=== PATIENT | male | born 1945 ===

== ENCOUNTER 2018-04-12 07:59 | Inpatient (IN) | payer MEDICARE ==
[~2018-04-12] VITALS: Ht 167.6 cm; Wt 105.0 kg
[~2018-04-12 07:59] MED LIST: AMLO10 PO; ASPI81EC; ASPI81EC PO; ATOR20 PO; ATOR40TA PO; BENA20 PO; BENAML10/5; Bactrim Ds Tab1 EACH PO; CEPH500 PO; CRUTCH USE; CYAN1000 PO; EZET10-10; Ferrous Glucon325 M2 PO; HYDACE5 PO; LEVFLO500 PO; NAPR500 PO; OXYACE5T PO; PRIM50 PO; TRIA50 PO; TRIHYD; TRIHYD253A PO
[2018-04-12] MEDS ORDERED: ATOR10 PO (08:41)
[2018-04-12] MEDS ORDERED: ADULT ASPIRIN81 MG (08:41)
[2018-04-12] MEDS ORDERED: AMLO5 PO (08:42)
[2018-04-12] MEDS ORDERED: MAGOXI400 (08:42)
[2018-04-12 09:17] LABS: BASOPHILS ABSOLUTE AUTO 0.08 K/mm3 (0.00-0.23); BASOPHILS PERCENT AUTO 0 % (0-2); EOSINOPHILS ABSOLUTE AUTO 0.02 K/mm3 (0.00-0.68); EOSINOPHILS PERCENT AUTO 0 % (0-6); Hematocrit 49.8 % (37.0-53.0); IMMATURE GRAN ABSOLUTE AUTO 0.39 K/mm3 (0.00-0.10); IMMATURE GRAN PERCENT AUTO 2 % (0-1); LYMPHOCYTES ABSOLUTE AUTO 0.55 K/mm3 (0.84-5.20); LYMPHOCYTES PERCENT AUTO 3 % (21-46); MONOCYTES ABSOLUTE AUTO 1.23 K/mm3 (0.16-1.47); MONOCYTES PERCENT AUTO 6 % (4-13); Mean Corpuscular HGB 31.3 pg (26.0-34.0); Mean Corpuscular HGB Conc 32.1 g/dL (31.5-36.5); Mean Corpuscular Volume 98 fL (80-100); Mean Platelet Volume 10.6 fL (9.1-12.4); NEUTROPHILS ABSOLUTE AUTO 19.94 K/mm3 (1.96-9.15); NEUTROPHILS PERCENT AUTO 90 % (41-73); Platelet Count 246 K/mm3 (150-400); RDW Coefficient Variation 13.2 % (11.7-14.2); RDW Standard Deviation 47.9 fL (35.1-46.3); Red Blood Cell Count 5.11 M/mm3 (4.30-5.90); White Blood Cell Count 22.21 K/mm3 (4.00-11.30)
[2018-04-12 09:37] LABS: Albumin, Blood 2.9 g/dL (3.4-5.0); Albumin/Globulin Ratio 0.6 (0.8-1.8); Bilirubin, Total 0.9 mg/dL (0.1-1.0); Bun/Creatinine Ratio 22.2 (12.0-20.0); Calcium, Blood 9.4 mg/dL (8.5-10.1); Creatinine, Blood 2.48 mg/dL (0.60-1.20); Globulin, Blood 4.9 g/dL (2.2-4.0); Potassium, Blood 4.3 mmol/L (3.5-5.5); Total Protein, Blood 7.8 g/dL (6.4-8.2)
[2018-04-12] MEDS ORDERED: ALLO100 PO (14:36)
[2018-04-12] MEDS ORDERED: K-Tab10 MEQ PO (14:38)
[2018-04-12] MEDS ORDERED: CHOL10002 PO (14:38)
[2018-04-13 03:32] LABS: Hemoglobin 14.1 g/dL (13.5-17.5); Mean Corpuscular HGB 30.7 pg (26.0-34.0); Mean Corpuscular HGB Conc 31.3 g/dL (31.5-36.5); Mean Corpuscular Volume 98 fL (80-100); Mean Platelet Volume 11.1 fL (9.1-12.4); Platelet Count 194 K/mm3 (150-400); RDW Coefficient Variation 13.5 % (11.7-14.2); RDW Standard Deviation 49.1 fL (35.1-46.3); Red Blood Cell Count 4.59 M/mm3 (4.30-5.90); White Blood Cell Count 18.84 K/mm3 (4.00-11.30)
[2018-04-13 03:51] LABS: Albumin, Blood 2.2 g/dL (3.4-5.0); Albumin/Globulin Ratio 0.5 (0.8-1.8); Bilirubin, Total 0.7 mg/dL (0.1-1.0); Bun/Creatinine Ratio 24.2 (12.0-20.0); Calcium, Blood 8.4 mg/dL (8.5-10.1); Creatinine, Blood 2.48 mg/dL (0.60-1.20); Globulin, Blood 4.3 g/dL (2.2-4.0); Potassium, Blood 4.5 mmol/L (3.5-5.5); Total Protein, Blood 6.5 g/dL (6.4-8.2)
[2018-04-13 04:05] LABS: BAND PERCENT MAN 17 % (0-8); BASOPHILS PERCENT MAN 0 % (0-2); EOSINOPHILS PERCENT MAN 0 % (0-6); LYMPHOCYTES ABSOLUTE MAN 0.37 K/mm3 (0.84-5.20); LYMPHOCYTES PERCENT MAN 2 % (21-46); MONOCYTES ABSOLUTE MAN 1.13 K/mm3 (0.16-1.47); MONOCYTES PERCENT MAN 6 % (4-13); NEUTROPHILS ABSOLUTE MAN 17.33 K/mm3 (1.96-9.15); SEG NEUTROPHILS PERCENT MAN 75 % (41-73); TOTAL CELLS COUNTED 100
[2018-04-14 09:12] LABS: BASOPHILS ABSOLUTE AUTO 0.04 K/mm3 (0.00-0.23); BASOPHILS PERCENT AUTO 0 % (0-2); EOSINOPHILS ABSOLUTE AUTO 0.02 K/mm3 (0.00-0.68); EOSINOPHILS PERCENT AUTO 0 % (0-6); Hemoglobin 13.7 g/dL (13.5-17.5); IMMATURE GRAN ABSOLUTE AUTO 0.45 K/mm3 (0.00-0.10); IMMATURE GRAN PERCENT AUTO 3 % (0-1); LYMPHOCYTES ABSOLUTE AUTO 0.47 K/mm3 (0.84-5.20); LYMPHOCYTES PERCENT AUTO 3 % (21-46); MONOCYTES ABSOLUTE AUTO 0.81 K/mm3 (0.16-1.47); MONOCYTES PERCENT AUTO 5 % (4-13); Mean Corpuscular HGB 31.1 pg (26.0-34.0); Mean Corpuscular HGB Conc 31.1 g/dL (31.5-36.5); Mean Corpuscular Volume 100 fL (80-100); Mean Platelet Volume 10.8 fL (9.1-12.4); NEUTROPHILS ABSOLUTE AUTO 13.99 K/mm3 (1.96-9.15); NEUTROPHILS PERCENT AUTO 89 % (41-73); Platelet Count 175 K/mm3 (150-400); RDW Coefficient Variation 13.8 % (11.7-14.2); RDW Standard Deviation 51.6 fL (35.1-46.3); White Blood Cell Count 15.78 K/mm3 (4.00-11.30)
[2018-04-14 09:41] LABS: Bun/Creatinine Ratio 28.5 (12.0-20.0); Calcium, Blood 8.6 mg/dL (8.5-10.1); Creatinine, Blood 2.46 mg/dL (0.60-1.20); Potassium, Blood 4.2 mmol/L (3.5-5.5)
[2018-04-15 06:47] LABS: Albumin, Blood 2.1 g/dL (3.4-5.0); Anion Gap 7 mmol/L (6-16); Blood Urea Nitrogen 69 mg/dL (8-24); Bun/Creatinine Ratio 30.8 (12.0-20.0); CO2, Blood 26 mmol/L (21-32); Calcium, Blood 8.7 mg/dL (8.5-10.1); Chloride, Blood 105 mmol/L (98-108); Creatinine, Blood 2.24 mg/dL (0.60-1.20); Glomerular Filtration Rate 31 (60-); Glucose, Blood 92 mg/dL (70-99); Phosphorus, Blood 3.4 mg/dL (2.5-4.9); Potassium, Blood 3.8 mmol/L (3.5-5.5); Sodium, Blood 138 mmol/L (136-145)
[2018-04-15] MEDS ORDERED: OXYC5 PO (10:46)
[2018-04-15] MEDS ORDERED: AMOCLA500 PO (10:47)
== END 2018-04-15 11:50 | disposition home or self-care (01) | DRG 394 ==
LOC: ER 07:59 → ICUE 12:04 → SURS 12:04 → ICUE 18:07 → PCU 04-13 03:45 → SURS 04-13 10:32
PROVIDERS: Family Medicine; Internal Medicine; Physician Assistant; Surgery
PROC: 0J9B3ZX Drainage of Perineum Subcutaneous Tissue and Fascia, Percutaneous Approach, Diagnostic (ICD-10-PCS; principal; 2018-04-12 15:45)
DX: K61.39 Other ischiorectal abscess (principal); N17.9 Acute kidney failure, unspecified; G47.33 Obstructive sleep apnea (adult) (pediatric); E78.5 Hyperlipidemia, unspecified; I12.9 Hypertensive chronic kidney disease with stage 1 through stage 4 chronic kidney disease, or unspecified chronic kidney disease; N18.3 Chronic kidney disease, stage 3 (moderate); Z87.891 Personal history of nicotine dependence; Z93.3 Colostomy status; Z85.46 Personal history of malignant neoplasm of prostate
CPT/HCPCS: 36415; 72192; 80048; 80053; 80069; 83605; 85025; 87040; 87070; 87075; 87076; 87077; 87185; 87186; 87205; 93005; 93010; 96365; 96375; 99285-25; J0295; J0330; J1170; J2060; J2250; J2370; J3010; J7030; J7050; J7120

== ENCOUNTER 2018-06-12 13:30 | Day surgery (SDC) | payer MEDICARE ==
[~2018-06-12 13:30] MED LIST changes: +ADULT ASPIRIN81 MG; +ALLO100 PO; +AMLO5 PO; +AMOCLA500 PO; +ATOR10 PO; +CHOL10002 PO; +K-Tab10 MEQ PO; +MAGOXI400; +OXYC5 PO
== END 2018-06-12 22:40 | disposition home or self-care (01) ==
LOC: WOUND 13:30
DX: S31.30XA Unspecified open wound of scrotum and testes, initial encounter (principal); L98.412 Non-pressure chronic ulcer of buttock with fat layer exposed; N49.2 Inflammatory disorders of scrotum; T81.89XD Other complications of procedures, not elsewhere classified, subsequent encounter; I12.9 Hypertensive chronic kidney disease with stage 1 through stage 4 chronic kidney disease, or unspecified chronic kidney disease; N18.9 Chronic kidney disease, unspecified

== ENCOUNTER 2018-06-19 13:30 | Day surgery (SDC) | payer MEDICARE | END 2018-06-19 22:42 | disposition home or self-care (01) | LOC: WOUND 13:30 | DX: S31.30XD Unspecified open wound of scrotum and testes, subsequent encounter (principal); L98.412 Non-pressure chronic ulcer of buttock with fat layer exposed; N49.2 Inflammatory disorders of scrotum; T81.89XD Other complications of procedures, not elsewhere classified, subsequent encounter; Z79.82 Long term (current) use of aspirin | CPT/HCPCS: G0463 ==

== ENCOUNTER 2018-06-26 12:45 | Day surgery (SDC) | payer MEDICARE | END 2018-06-26 23:28 | disposition home or self-care (01) | LOC: WOUND 12:45 | DX: S31.30XD Unspecified open wound of scrotum and testes, subsequent encounter (principal); L98.412 Non-pressure chronic ulcer of buttock with fat layer exposed; N49.2 Inflammatory disorders of scrotum; T81.89XD Other complications of procedures, not elsewhere classified, subsequent encounter; I12.9 Hypertensive chronic kidney disease with stage 1 through stage 4 chronic kidney disease, or unspecified chronic kidney disease; N18.9 Chronic kidney disease, unspecified ==

== ENCOUNTER 2018-07-03 13:10 | Day surgery (SDC) | payer MEDICARE | END 2018-07-03 22:50 | disposition home or self-care (01) | LOC: WOUND 13:10 | PROC: 0HBAXZZ Excision of Inguinal Skin, External Approach (ICD-10-PCS; principal; 2018-07-03) | DX: S31.30XA Unspecified open wound of scrotum and testes, initial encounter (principal); L98.412 Non-pressure chronic ulcer of buttock with fat layer exposed; N49.2 Inflammatory disorders of scrotum ==

== ENCOUNTER 2018-07-10 13:10 | Day surgery (SDC) | payer MEDICARE | END 2018-07-10 23:03 | disposition home or self-care (01) | LOC: WOUND 13:10 | DX: S31.30XD Unspecified open wound of scrotum and testes, subsequent encounter (principal); L98.412 Non-pressure chronic ulcer of buttock with fat layer exposed; N49.2 Inflammatory disorders of scrotum; T81.89XD Other complications of procedures, not elsewhere classified, subsequent encounter; Z79.82 Long term (current) use of aspirin | CPT/HCPCS: G0463 ==

== ENCOUNTER 2018-07-17 13:50 | Day surgery (SDC) | payer MEDICARE | END 2018-07-17 22:47 | disposition home or self-care (01) | LOC: WOUND 13:50 | PROC: 0HBAXZZ Excision of Inguinal Skin, External Approach (ICD-10-PCS; principal; 2018-07-17) | DX: S31.30XA Unspecified open wound of scrotum and testes, initial encounter (principal); S31.104A Unspecified open wound of abdominal wall, left lower quadrant without penetration into peritoneal cavity, initial encounter; L98.412 Non-pressure chronic ulcer of buttock with fat layer exposed | CPT/HCPCS: 87070; 87205 ==

== ENCOUNTER 2018-07-24 13:00 | Day surgery (SDC) | payer MEDICARE | END 2018-07-24 22:46 | disposition home or self-care (01) | LOC: WOUND 13:00 | DX: L98.412 Non-pressure chronic ulcer of buttock with fat layer exposed (principal); S31.30XA Unspecified open wound of scrotum and testes, initial encounter; N49.2 Inflammatory disorders of scrotum; T81.89XA Other complications of procedures, not elsewhere classified, initial encounter; I12.9 Hypertensive chronic kidney disease with stage 1 through stage 4 chronic kidney disease, or unspecified chronic kidney disease; N18.9 Chronic kidney disease, unspecified; E78.5 Hyperlipidemia, unspecified; G47.33 Obstructive sleep apnea (adult) (pediatric) | CPT/HCPCS: G0463 ==

== ENCOUNTER 2018-07-31 00:30 | Day surgery (SDC) | payer MEDICARE | END 2018-07-31 23:03 | disposition home or self-care (01) | LOC: WOUND 00:30 | DX: S31.30XA Unspecified open wound of scrotum and testes, initial encounter (principal); L98.412 Non-pressure chronic ulcer of buttock with fat layer exposed; T81.89XD Other complications of procedures, not elsewhere classified, subsequent encounter; N49.2 Inflammatory disorders of scrotum; Z79.82 Long term (current) use of aspirin | CPT/HCPCS: G0463 ==

== ENCOUNTER 2018-08-21 00:46 | Day surgery (SDC) | payer MEDICARE | END 2018-08-21 22:53 | disposition home or self-care (01) | LOC: WOUND 00:46 | DX: S31.30XD Unspecified open wound of scrotum and testes, subsequent encounter (principal); L98.412 Non-pressure chronic ulcer of buttock with fat layer exposed; N49.2 Inflammatory disorders of scrotum; T81.89XD Other complications of procedures, not elsewhere classified, subsequent encounter | CPT/HCPCS: G0463 ==

== ENCOUNTER 2018-09-04 13:00 | Day surgery (SDC) | payer MEDICARE | END 2018-09-04 22:51 | disposition home or self-care (01) | LOC: WOUND 13:00 | DX: T81.89XD Other complications of procedures, not elsewhere classified, subsequent encounter (principal); S31.30XD Unspecified open wound of scrotum and testes, subsequent encounter; E78.5 Hyperlipidemia, unspecified; G47.33 Obstructive sleep apnea (adult) (pediatric); I12.9 Hypertensive chronic kidney disease with stage 1 through stage 4 chronic kidney disease, or unspecified chronic kidney disease; N18.9 Chronic kidney disease, unspecified | CPT/HCPCS: G0463 ==